=== PATIENT | male | born 1995 | race African-American/Black ===

== ENCOUNTER 2022-10-29 17:11 | Emergency (ER) | payer SELFPAY ==
[~2022-10-29] VITALS: Ht 185.4 cm; Wt 118.0 kg
[2022-10-29 17:26] VITALS: BP 144/81; PULSE 94; RESP 16; TEMP 98.9; O2SAT 100
== END 2022-10-29 18:31 | disposition left against medical advice (07) ==
LOC: ER 18:10
DX: Z53.21 Procedure and treatment not carried out due to patient leaving prior to being seen by health care provider (principal)
CPT/HCPCS: 99281